=== PATIENT | male | born 1970 | race Two or more races ===

== ENCOUNTER 2023-07-07 10:56 | Emergency (ER) | payer OTHER ==
[~2023-07-07] VITALS: Ht 182.9 cm; Wt 89.6 kg
[2023-07-07 11:12] VITALS: BP 135/92; PULSE 94; RESP 18; O2SAT 96
[2023-07-07] MEDS ORDERED: CYCLOBENZAPRINE HCL 10 MG TAB PO ONE (11:15)
[2023-07-07] MEDS ORDERED: IBUPROFEN 400 MG TAB PO ONE (11:45)
[2023-07-07] MEDS ORDERED: CYCL-839 PO (13:03)
[2023-07-07] MEDS ORDERED: MELO-335 PO (13:03)
== END 2023-07-07 18:50 | disposition home or self-care (01) ==
LOC: ER 10:56
DX: S20.211A Contusion of right front wall of thorax, initial encounter (principal); Z79.899 Other long term (current) drug therapy; Y04.2XXA Assault by strike against or bumped into by another person, initial encounter; Y93.89 Activity, other specified; Y92.89 Other specified places as the place of occurrence of the external cause; Y99.8 Other external cause status
CPT/HCPCS: 71101